=== PATIENT | female | born 1965 | race Hispanic/Latino ===

== ENCOUNTER 2019-01-23 22:04 | Emergency (ER) | payer OTHER ==
[2019-01-23 22:12] VITALS: O2SAT 99
[2019-01-23] MEDS ORDERED: DiphenhydrAMINE 50 mg/ml Inj ONE (22:13)
[2019-01-23] MEDS ORDERED: Albuterol 0.083% Inhal Sol (2.5 mg/3 mL) UD ONE (22:16)
[2019-01-23] MEDS ORDERED: DiphenhydrAMINE 50 mg/ml Inj IVP STA (22:16)
[2019-01-23] MEDS ORDERED: Albuterol 0.083% Inhal Sol (2.5 mg/3 mL) UD IH STA (22:16)
--- NOTE | 2019-01-23 22:39 | ED PDOC ---
HPI: Allergic Reaction Time Seen by Provider: 01/23/19 22:10 Chief Complaint (Nursing): Allergic Reaction Chief Complaint (Provider): Allergic Reaction History Per: Patient History/Exam Limitations: no limitations Onset/Duration Of Symptoms: Hrs Current Symptoms Are (Timing): Still Present Additional Complaint(s): 53 y/o female with a PMhx of Anemia and an Unknown Autoimmune Disease presents to the ED for evaluation of allergic reaction. Patient reports that at around 9 PM, just after she dyed her hair, she began developing an itchy scalp. Patient notes she commonly gets an itchy scalp after dying her hair but states this was different because it progressed to redness of the face and upper chest as well as intense coughing fits. Patient reports of having severe allergies to certain foods and has had to be given epinephrine in the past for anaphylaxis but has not needed it for many years. Patient states she has never had this kind of reaction to hair dye in the past. Patient notes that over the last couple of weeks, she has been having seasonal allergies but has not taken any medications for them. At this time, patient additionally complaining of itchy throat and chest tightness, Otherwise, patient denies tongue or lip swelling. PMD: Dr. Jacobson in [facility]. Past Medical History Reviewed: Historical Data, Nursing Documentation, Vital Signs Vital Signs: Last Vital Signs Temp 96.6 F L 01/23/19 22:10 Pulse 150 H 01/23/19 22:10 Resp 22 01/23/19 22:10 BP 133/100 H 01/23/19 22:10 Pulse Ox 99 01/23/19 22:10 Primary Care Provider: MERLYN BORDEN - Medical History PMH: Anemia Other PMH: Unspecified autoimmune disorder - Surgical History Surgical History: Hernia Repair, Other surgeries: wrist surgery - Family History Family History: States: No Known Family Hx - Social History Current smoker - smoking cessation education provided: No - Home Medications Home Medications: Ambulatory Orders Medication Instructions Recorded Ibuprofen 600 mg PO Q6H PRN #15 tab 09/24/14 Oxycodone HCl/Acetaminophen 1 tab PO Q6 PRN #15 tab 09/24/14 [Percocet 325 mg-5 mg] Clindamycin HCl [Clindamycin] 150 mg PO TID #21 cap 10/09/14 Epinephrine [Epi Ez Pen] 0.3 mg IM ONCE PRN #2 syr 10/09/14 Prednisone 50 mg PO DAILY #4 tab 10/09/14 DiphenhydrAMINE [Benadryl] 50 mg PO Q6 PRN #30 cap 01/23/19 Epinephrine HCl [Epipen 0.3 mg IM ONCE PRN #0.3 ml 01/23/19 Auto-Injector] Famotidine [Pepcid] 40 mg PO DAILY PRN #7 tab 01/23/19 Loratadine [Claritin] 10 mg PO DAILY #30 tab 01/23/19 Prednisone 50 mg PO DAILY #4 tablet 01/23/19 - Allergies Allergies/Adverse Reactions: Allergies Allergy/AdvReac Type Severity Reaction Status Date / Time carrot Allergy RASH Verified 01/23/19 22:10 celery Allergy ANAPHYLAXIS Verified 01/23/19 22:10 Cephalosporins Allergy ANAPHYLAXIS Verified 01/23/19 22:10 Review of Systems ROS Statement: Except As Marked, All Systems Reviewed And Found Negative (as per HPI) ENT: Positive for: Throat Pain Cardiovascular: Positive for: Chest Pain Respiratory: Positive for: Cough Skin: Positive for: Rash Physical Exam - Reviewed Nursing Documentation Reviewed: Yes Vital Signs Reviewed: Yes - Physical Exam Appears: Positive for: Uncomfortable, In Acute Distress Head Exam: Positive for: ATRAUMATIC, NORMOCEPHALIC Skin: Positive for: Rash (erythematous rash to the forehead, side of cheeks, lower neck and upper chest wall with some urticarial lesions along the hairline. ) Eye Exam: Positive for: EOMI, PERRL ENT: Positive for: Pharynx Is (clear), Other (No uvula, soft palate or tongue e ramirez. No lip swelling) Neck: Positive for: Painless ROM, Supple Cardiovascular/Chest: Positive for: Regular Rate, Rhythm. Negative for: Murmur Respiratory: Positive for: Stridor (Occasional inspiratory stridoer), Wheezing (scattered) Gastrointestinal/Abdominal: Positive for: Soft. Negative for: Tenderness Back: Positive for: Normal Inspection. Negative for: Decreased ROM Extremity: Positive for: Normal ROM. Negative for: Deformity Lymphatic: Negative for: Adenopathy Neurological/Psych: Positive for: Awake, Alert. Negative for: Motor/Sensory Deficits - ECG O2 Sat by Pulse Oximetry: 99 (RA) Pulse Ox Interpretation: Normal - Progress ED Course And Treament: Time: 2218 Impression: Allergic Reaction Plan: -- Albuterol 0.083% 2.5 mg IH -- Benadryl 25 mg IVP -- Pepcid 40 mg IVP -- SOLU-Medrol 125 mg IVP -- Marine Equipment Engineer -- Peak Flow Pre/Post Tx Scribe Attestation: Documented by Robert Allen, acting as a scribe Maria M Turner MD. Provider Scribe Attestation: All medical record entries made by the Scribe were at my direction and personally dictated by me. I have reviewed the chart and agree that the record accurately reflects my personal performance of the history, physical exam, medical decision making, and the department course for this patient. I have also personally directed, reviewed, and agree with the discharge instructions and di sposition. Re-evaluation Time: 23:00 Condition: Improved (breathing comfortably and rash resolved. Stable for discharge.) Disposition - Clinical Impression Clinical Impression: Acute allergic reaction - Disposition Disposition: Routine/Home Disposition Time: 23:00 Condition: IMPROVED Additional Instructions: PLEASE AVOID HAIR DYE FOLLOWUP WITH YOUR DOCTOR IN 24-48 HOURS FOR REEVALUATION Prescriptions: DiphenhydrAMINE [Benadryl] 50 mg PO Q6 PRN #30 cap PRN Reason: Itching / Pruritus Epinephrine HCl [Epipen Auto-Injector] 0.3 mg IM ONCE PRN #0.3 ml PRN Reason: Anaphylaxis Famotidine [Pepcid] 40 mg PO DAILY PRN #7 tab PRN Reason: reflux Loratadine [Claritin] 10 mg PO DAILY #30 tab Prednisone 50 mg PO DAILY #4 tablet Instructions: Hives Forms: [employer] (Par[place]ayan)
[2019-01-23 23:20] VITALS: BP 126/77; PULSE 90; RESP 17; TEMP 98.2
== END 2019-01-23 23:37 | disposition home or self-care (01) ==
LOC: H.ER 22:04
DX: T78.40XA Allergy, unspecified, initial encounter (principal); D64.9 Anemia, unspecified; Z88.1 Allergy status to other antibiotic agents
CPT/HCPCS: 94640; 96374; 96375; 99285; J1200; J2930